=== PATIENT | male | born 1975 | race African-American/Black ===

== ENCOUNTER 2021-06-21 10:58 | Day surgery (SDC) | payer OTHER ==
[2021-06-21] MEDS ORDERED: ONDANSETRON 4 MG/2 ML VIAL ONE ×2 (11:39→13:33)
[2021-06-21] MEDS ORDERED: HYDROMORPHONE HCL 1 MG/ML INJ ONE ×2 (11:39→12:03)
[2021-06-21] MEDS ORDERED: NA CHLORIDE 0.9% 1,000 ML ONE (11:50)
[2021-06-21 11:51] LABS: Urine Blood Negative (Negative); Urine Glucose Negative (Negative); Urine Protein Negative (Negative); Urine pH 5.5 (5.0-7.0)
[2021-06-21 11:54] LABS: Absolute Lymphocytes (CBC) 0.9 K/uL (0.7-4.9); Hematocrit 42.1 % (39.6-49.0); Lymphocytes % 8.1 % (15.3-44.8); MPV 7.5 fL (7.6-11.3); RBC Red Blood Cell Count 4.45 M/uL (4.33-5.43)
[2021-06-21 12:10] LABS: Albumin 3.9 g/dL (3.4-5.0); Bilirubin Total 0.4 mg/dL (0.2-1.0); Potassium 4.2 mmol/L (3.5-5.1); Protein, Total 7.8 g/dL (6.4-8.2)
--- NOTE | 2021-06-21 12:12 | ER ---
Nurse's Notes [facility] Name: Darrion Soliz Age: 46 yrs Sex: Male : 1975 Arrival Date: 06/21/2021 Time: 11:05 Bed 25 Private MD: Diagnosis: Unilateral inguinal hernia, with obstruction, without gangrene, recurrent Presentation: 06/21 11:05 Chief complaint: Patient states: "I have had a hernia for years and normally when it ab2 pops out we can get it back in but this time we cant and it hurts really bad. The doctor at the [facility] said its lacerated." Pt c/o abdominal pain and nausea. Coronavirus screen: Vaccine status: Patient reports receiving the 2nd dose of the covid vaccine. Client denies travel out of the [place] in the last 14 days. At this time, the client does not indicate any symptoms associated with coronavirus-19. Ebola Screen: Patient negative for fever greater than or equal to 101.5 degrees Fahrenheit, and additional compatible Ebola Virus Disease symptoms Patient denies exposure to infectious person. Patient denies travel to an Ebola-affected area in the 21 days before illness onset. No symptoms or risks identified at this time. Initial Sepsis Screen: Does the patient meet any 2 criteria? No. Patient's initial sepsis screen is negative. Does the patient have a suspected source of infection? No. Patient's initial sepsis screen is negative. Risk Assessment: Do you want to hurt yourself or someone else? Patient reports no desire to harm self or others. Onset of symptoms is unknown. 11:05 Method Of Arrival: Other ab2 11:05 Acuity: OSCAR 3 ab2 Historical: - Allergies: 11:07 No Known Allergies; ab2 - PMHx: 11:07 Asthma; Hypercholesterolemia; Hypertensive disorder; ab2 - PSHx: 11:07 None; ab2 - Immunization history:: Adult Immunizations up to date. - Social history:: Smoking status: Patient denies any tobacco usage or history of. - Family history:: not pertinent. Screenin:09 Abuse screen: Denies threats or abuse. Denies injuries from another. Nutritional ab2 screening: No deficits noted. Tuberculosis screening: No symptoms or risk factors identified. Fall Risk None identified. Assessment: 11:07 General: Appears in no apparent distress. uncomfortable, Behavior is cooperative, ab2 appropriate for age, agitated. Pain: Complains of pain in right lower quadrant Pain radiates to pelvis. Neuro: Level of Consciousness is awake, alert, obeys commands, Oriented to person, place, time, situation, Appropriate for age Senior Medical Billing Specialist are equal bilaterally Moves all extremities. Gait is steady, Speech is normal, Facial symmetry appears normal. Cardiovascular: No deficits noted. Denies chest pain, shortness of breath, Heart tones S1 S2 present Patient's skin is warm and dry. Respiratory: No deficits noted. Airway is patent Respiratory effort is even, unlabored, Respiratory pattern is regular, symmetrical, Breath sounds are clear bilaterally. GI: Reports lower abdominal pain, nausea, hernia noted. : No deficits noted. EENT: No deficits noted. No signs and/or symptoms were reported regarding the EENT system. Derm: Skin is intact, is healthy with good turgor. Musculoskeletal: No deficits noted. 12:58 Reassessment: Patient appears in no apparent distress at this time. Pt resting more ab2 comfortably after pain medications. Pt states pain is much better. Awaiting for patient to go to OR. Correctional officers remain at bedside. 13:13 Reassessment: Patient appears in no apparent distress at this time. Bedside report ab2 given to OR nurse. Patient transferred to OR via stretcher with OR nurse and 2 correctional officers. Vital Signs: 11:05 BP 178 / 105; Pulse 73; Resp 17; Temp 98.9; Pulse Ox 99% on R/A; Weight 88.45 kg; ab2 Height 6 ft. 1 in. (185.42 cm); Pain 10/10; 11:48 BP 154 / 111; Pulse 79; Resp 17; Pulse Ox 99% ; ab2 12:51 BP 151 / 95; Pulse 59; Resp 17; Pulse Ox 98% on R/A; ab2 11:05 Body Mass Index 25.73 (88.45 kg, 185.42 cm) ab2 ED Course: 11:05 Patient arrived in ED. ab2 11:05 Clayton Clifford is Primary Nurse. ab2 11:05 Jose Rinaldi MD is Attending Physician. juanito 11:07 Triage completed. ab2 11:09 Arm band placed on right wrist. ab2 11:09 Patient has correct armband on for positive identification. Side rails up X2. Adult w/ ab2 patient. 2 correctional officers at bedside. 11:48 No provider procedures requiring assistance completed. Inserted saline lock: 20 gauge ab2 in left antecubital area, using aseptic technique. Blood collected. 12:11 Garth Rao MD is Hospitalizing Provider. juanito 12:35 CT Abd/Pelvis - IV Contrast Only In Process Unspecified. EDMS 12:49 Chest Single View XRAY In Process Unspecified. EDMS 12:51 COVID-19 SARS RT PCR (Document "Date of Onset" if Symptomatic) Sent. ab2 13:14 Patient admitted, IV remains in place. ab2 Administered Medications: 11:38 Drug: Zofran (Ondansetron) 8 mg Route: IVP; Site: left antecubital; ab2 12:59 Follow up: Response: No adverse reaction ab2 11:38 Drug: Dilaudid (HYDROmorphone) 1 mg Route: IVP; Site: left antecubital; ab2 13:00 Follow up: Response: No adverse reaction ab2 11:39 CANCELLED (Duplicate Order): Zofran (Ondansetron) 8 mg IVP once; over 2 minutes ab2 11:39 CANCELLED (Duplicate Order): Dilaudid (HYDROmorphone) 1 mg IVP once; RASS on ADMIN: ab2 Combtv4, Very Agttd3, Agttd2, Rstlss1, AlertClm0, Drwsy-1, Lt Sdtn-2, Mod Sdtn-3, Dp Sdtn-4, UnArsble-5 11:42 CANCELLED (Duplicate Order): Dilaudid (HYDROmorphone) 1 mg IVP once; RASS on ADMIN: ab2 Combtv4, Very Agttd3, Agttd2, Rstlss1, AlertClm0, Drwsy-1, Lt Sdtn-2, Mod Sdtn-3, Dp Sdtn-4, UnArsble-5 11:47 Drug: NS 0.9% 1000 ml Route: IV; Rate: 1 bolus; Site: left antecubital; ab2 12:59 Follow up: Response: No adverse reaction; IV Status: Completed infusion ab2 12:01 Drug: Dilaudid (HYDROmorphone) 1 mg Route: IVP; Site: left antecubital; ab2 12:59 Follow up: Response: No adverse reaction ab2 12:18 Drug: Zosyn (piperacillin-tazobactam) 3.375 grams Route: IVPB; Infused Over: 60 mins; ab2 Site: left antecubital; 13:00 Follow up: Response: No adverse reaction; IV Status: Completed infusion ab2 Outcome: 12:12 Decision to Hospitalize by Provider. juanito 13:14 Admitted to OR accompanied by nurse, via stretcher, with chart. ab2 13:14 Condition: good 13:14 Patient left the ED. ab2 Signatures: Dispatcher [employer] Jose Tompkins MD MD cha Bleininger, Alexis ab2
--- NOTE | 2021-06-21 12:12 | EDPHYS ---
Physician Documentation [facility] Name: Darrion Soliz Age: 46 yrs Sex: Male : 1975 Arrival Date: 06/21/2021 Time: 11:05 Bed 25 Private MD: ED Physician Jose Rinaldi HPI: 06/21 12:05 This 46 yrs old Black Male presents to ER via Other with complaints of right scrotal juanito pain. 12:05 The patient presents with abdominal pain right lower quadrant. Onset: The juanito symptoms/episode began/occurred 2 hour(s) ago. The patient presents with scrotal pain, of the right side. Onset: The symptoms/episode began/occurred 2 hour(s) ago. Modifying factors: The symptoms are alleviated by nothing, the symptoms are aggravated by movement. Associated signs and symptoms: The patient has no apparent associated signs or symptoms. The symptoms do not radiate. Associated signs and symptoms: none. Severity of pain: At its worst the pain was moderate in the emergency department the pain is unchanged. Historical: - Allergies: 11: No Known Allergies; ab2 - PMHx: 11: Asthma; Hypercholesterolemia; Hypertensive disorder; ab2 - PSHx: : None; ab2 - Immunization history:: Adult Immunizations up to date. - Social history:: Smoking status: Patient denies any tobacco usage or history of. - Family history:: not pertinent. ROS: 12:05 Constitutional: Negative for fever, chills, and weight loss, Eyes: Negative for injury, juanito pain, redness, and discharge, ENT: Negative for injury, pain, and discharge, Neck: Negative for injury, pain, and swelling, Cardiovascular: Negative for chest pain, palpitations, and edema, Respiratory: Negative for shortness of breath, cough, wheezing, and pleuritic chest pain, Back: Negative for injury and pain, : Negative for injury, bleeding, discharge, and swelling, MS/Extremity: Negative for injury and deformity, Skin: Negative for injury, rash, and discoloration, Neuro: Negative for headache, weakness, numbness, tingling, and seizure, Psych: Negative for depression, anxiety, suicide ideation, homicidal ideation, and hallucinations, Allergy/Immunology: Negative for hives, rash, and allergies, Endocrine: Negative for neck swelling, polydipsia, polyuria, polyphagia, and marked weight changes, Hematologic/Lymphatic: Negative for swollen nodes, abnormal bleeding, and unusual bruising. 12:05 Abdomen/GI: Positive for abdominal pain, of the right lower quadrant. 12:05 Abdomen/GI: Positive for nausea, of the . 12:05 : Positive for of the suprapubic area and right lower quadrant. Exam: 12:05 Constitutional: This is a well developed, well nourished patient who is awake, alert, juanito and in no acute distress. Head/Face: Normocephalic, atraumatic. Eyes: Pupils equal round and reactive to light, extra-ocular motions intact. Lids and lashes normal. Conjunctiva and sclera are non-icteric and not injected. Cornea within normal limits. Periorbital areas with no swelling, redness, or edema. ENT: Nares patent. No nasal discharge, no septal abnormalities noted. Tympanic membranes are normal and external auditory canals are clear. Oropharynx with no redness, swelling, or masses, exudates, or evidence of obstruction, uvula midline. Mucous membranes moist. Neck: Trachea midline, no thyromegaly or masses palpated, and no cervical lymphadenopathy. Supple, full range of motion without nuchal rigidity, or vertebral point tenderness. No Meningismus. Chest/axilla: Normal chest wall appearance and motion. Nontender with no deformity. No lesions are appreciated. Cardiovascular: Regular rate and rhythm with a normal S1 and S2. No gallops, murmurs, or rubs. Normal PMI, no JVD. No pulse deficits. Respiratory: Lungs have equal breath sounds bilaterally, clear to auscultation and percussion. No rales, rhonchi or wheezes noted. No increased work of breathing, no retractions or nasal flaring. Back: No spinal tenderness. No costovertebral tenderness. Full range of motion. Male : Normal genitalia with no discharge or lesions. Skin: Warm, dry with normal turgor. Normal color with no rashes, no lesions, and no evidence of cellulitis. MS/ Extremity: Pulses equal, no cyanosis. Neurovascular intact. Full, normal range of motion. Neuro: Awake and alert, GCS 15, oriented to person, place, time, and situation. Cranial nerves II-XII grossly intact. Motor strength 5/5 in all extremities. Sensory grossly intact. Cerebellar exam normal. Normal gait. Psych: Awake, alert, with orientation to person, place and time. Behavior, mood, and affect are within normal limits. 12:05 Abdomen/GI: Inspection: distension, that is mild, Bowel sounds: normal, Palpation: moderate abdominal tenderness, in the suprapubic area, Liver: no appreciated palpable abnormalities, Hernia: not appreciated. 13:09 ECG was reviewed by the Attending Physician. [facility] Vital Signs: 11:05 BP 178 / 105; Pulse 73; Resp 17; Temp 98.9; Pulse Ox 99% on R/A; Weight 88.45 kg; ab2 Height 6 ft. 1 in. (185.42 cm); Pain 10/10; 11:48 BP 154 / 111; Pulse 79; Resp 17; Pulse Ox 99% ; ab2 12:51 BP 151 / 95; Pulse 59; Resp 17; Pulse Ox 98% on R/A; ab2 11:05 Body Mass Index 25.73 (88.45 kg, 185.42 cm) ab2 MDM: 11:05 Patient medically screened. [facility] 12:09 Differential diagnosis: non-specific abd pain, pancreatitis, urinary tract infection. [facility] Data reviewed: vital signs, nurses notes, lab test result(s), radiologic studies, CT scan. Data interpreted: hose builder: rate is 79 beats/min, rhythm is regular, Pulse oximetry: on room air is 99 %. Counseling: I had a detailed discussion with the patient and/or guardian regarding: the historical points, exam findings, and any diagnostic results supporting the discharge/admit diagnosis, lab results, the need for further work-up and treatment in the hospital. 06/21 11:39 Order name: CBC with Diff; Complete Time: 13:09 [facility] 06/21 11:39 Order name: CMP; Complete Time: 13:09 [facility] 06/21 11:39 Order name: Lipase; Complete Time: 13:09 [facility] 06/21 11:51 Order name: Urine Dipstick-Ancillary; Complete Time: 13: [facility] 06/21 12:21 Order name: COVID-19 SARS RT PCR (Document "Date of Onset" if Symptomatic) bd 06/21 12:32 Order name: CBC Smear Scan; Complete Time: 13:09 [facility] 06/21 12:56 Order name: Basic Metabolic Panel [facility] 06/21 12:56 Order name: Basic Metabolic Panel [facility] 06/21 12:56 Order name: CBC with Automated Diff [facility] 06/21 12:56 Order name: CBC with Automated Diff [facility]CT 06/21 12:56 Order name: Lipase EDCT 06/21 12:56 Order name: Lipase EDCT 06/21 12:56 Order name: Liver (Hepatic) Function EDCT 06/21 12:56 Order name: Liver (Hepatic) Function EDCT 06/21 11:39 Order name: CT Abd/Pelvis - IV Contrast Only; Complete Time: 13:09 [facility] 06/21 11:39 Order name: IV Saline Lock; Complete Time: 11:42 [facility] 06/21 11:39 Order name: Labs collected and sent; Complete Time: 11:42 [facility] 06/21 11:39 Order name: Urine Dipstick-Ancillary (obtain specimen); Complete Time: 11:48 [facility] 06/21 12:11 Order name: EKG; Complete Time: 12:11 [facility] 06/21 12:11 Order name: EKG - Nurse/Tech; Complete Time: 12:51 [facility] 06/21 12:11 Order name: Chest Single View XRAY; Complete Time: 13:09 [facility] 06/21 12:56 Order name: NPO; Complete Time: 12:59 EDMS EC:09 Rate is 75 beats/min. Rhythm is regular. QRS [place] is Normal. NM interval is normal. QRS juanito interval is normal. QT interval is normal. No Q waves. T waves are Normal. No ST changes noted. Clinical impression: NSR w/ Non-specific ST/T Changes and No evidence of ischemia. Interpreted by me. Reviewed by me. Administered Medications: 11:38 Drug: Zofran (Ondansetron) 8 mg Route: IVP; Site: left antecubital; ab2 12:59 Follow up: Response: No adverse reaction ab2 11:38 Drug: Dilaudid (HYDROmorphone) 1 mg Route: IVP; Site: left antecubital; ab2 13:00 Follow up: Response: No adverse reaction ab2 11:39 CANCELLED (Duplicate Order): Zofran (Ondansetron) 8 mg IVP once; over 2 minutes ab2 11:39 CANCELLED (Duplicate Order): Dilaudid (HYDROmorphone) 1 mg IVP once; RASS on ADMIN: ab2 Combtv4, Very Agttd3, Agttd2, Rstlss1, AlertClm0, Drwsy-1, Lt Sdtn-2, Mod Sdtn-3, Dp Sdtn-4, UnArsble-5 11:42 CANCELLED (Duplicate Order): Dilaudid (HYDROmorphone) 1 mg IVP once; RASS on ADMIN: ab2 Combtv4, Very Agttd3, Agttd2, Rstlss1, AlertClm0, Drwsy-1, Lt Sdtn-2, Mod Sdtn-3, Dp Sdtn-4, UnArsble-5 11:47 Drug: NS 0.9% 1000 ml Route: IV; Rate: 1 bolus; Site: left antecubital; ab2 12:59 Follow up: Response: No adverse reaction; IV Status: Completed infusion ab2 12:01 Drug: Dilaudid (HYDROmorphone) 1 mg Route: IVP; Site: left antecubital; ab2 12:59 Follow up: Response: No adverse reaction ab2 12:18 Drug: Zosyn (piperacillin-tazobactam) 3.375 grams Route: IVPB; Infused Over: 60 mins; ab2 Site: left antecubital; 13:00 Follow up: Response: No adverse reaction; IV Status: Completed infusion ab2 Disposition Summary: 06/21/21 12:12 Hospitalization Ordered Hospitalization Status: Observation juanito Provider: Garth Rao cha Location: Operating Room juanito Condition: Fair juanito Problem: new juanito Symptoms: have improved jaunito Bed/Room Type: Standard juanito Room Assignment: juanito Diagnosis - Unilateral inguinal hernia, with obstruction, without gangrene, recurrent juanito Forms: - Medication Reconciliation Form juanito - SBAR form juanito Signatures: Dispatcher [employer] Jose Tompkins MD MD cha Bleininger, Alexis ab2 Corrections: (The following items were deleted from the chart) 11:39 11:39 Zofran (Ondansetron) 8 mg IVP once; over 2 minutes ordered. juanito ab2 11:39 11:39 Dilaudid (HYDROmorphone) 1 mg IVP once; RASS on ADMIN: Combtv4, Very Agttd3, ab2 Agttd2, Rstlss1, AlertClm0, Drwsy-1, Lt Sdtn-2, Mod Sdtn-3, Dp Sdtn-4, UnArsble-5 ordered. [facility] 11:42 11:41 Dilaudid (HYDROmorphone) 1 mg IVP once; RASS on ADMIN: Combtv4, Very Agttd3, ab2 Agttd2, Rstlss1, AlertClm0, Drwsy-1, Lt Sdtn-2, Mod Sdtn-3, Dp Sdtn-4, UnArsble-5 ordered. [facility]
[2021-06-21] MEDS ORDERED: PIPERACIL/TAZO 3.375 GM VIAL IV ONE (12:18)
[2021-06-21] MEDS ORDERED: NA CHLORIDE 0.9% 100 ML IV ONE (12:18)
[2021-06-21 12:31] LABS: White Blood Cell Scan OK (OK)
[2021-06-21 12:32] LABS: Blood Morphology Comment NOT SEEN (NOT SEEN); Platelet Estimate ADEQ
[2021-06-21] MEDS ORDERED: BUPIVACAINE 0.5% PF 10 ML VIAL ONE (12:32)
--- NOTE | 2021-06-21 12:52 | RAD REPORT ---
EXAM DESCRIPTION: CTAbdomen Pelvis W Contrast - 06/21/2021 12:34 pm CLINICAL HISTORY: Hernia, complicated COMPARISON: No comparisons TECHNIQUE: CT of the abdomen and pelvis was performed. All CT scans are performed using dose optimization technique as appropriate and may include automated exposure control or mA/KV adjustment according to patient size. FINDINGS: Lower chest: No acute abnormality. Liver: No acute abnormality or suspicious lesions. Biliary: No biliary ductal dilatation. Stomach: No significant focal abnormality. Duodenum: No significant focal abnormality. Pancreas: No significant abnormality. Spleen: No significant abnormality. Adrenal: No suspicious lesions. Kidney/ureter: No hydronephrosis. No renal calculi. Too small to characterize and/or benign appearing renal lesions are noted. Retroperitoneum: No retroperitoneal adenopathy. Vascular: No aneurysm. Bowel: Bowel containing right inguinal hernia with fluid.. This has a narrow neck. Cannot exclude inc arceration or strangulation. The wall of the colon within the sac is not well delineated and could be necrotic. Peritoneum: Right inguinal hernia as noted above. Small volume of pleural free fluid. Bladder: Grossly unremarkable. Reproductive: No adnexal masses. Bones: No acute fracture. Other: n/a IMPRESSION: Colon containing right inguinal hernia with possible strangulation. Urgent surgical cons ultation recommended. Finding relayed to Dr. Rinaldi by Dr. Blackwell at 1245 on 06/21/21.
[2021-06-21] MEDS ORDERED: ACETAMINOPHEN 500 MG TAB PO PRN (12:53)
[2021-06-21] MEDS ORDERED: ONDANSETRON 4 MG/2 ML VIAL IV PRN (12:53)
[2021-06-21] MEDS ORDERED: HYDROMORPHONE HCL 1 MG/ML INJ IV PRN (12:53)
--- NOTE | 2021-06-21 12:53 | RAD REPORT ---
EXAM DESCRIPTION: RAD - Chest Single View - 06/21/2021 12:47 pm CLINICAL HISTORY: COUGH COMPARISON: No comparisons FINDINGS: Lines: None. Lungs: No evidence of edema or pneumonia. Pleural: No significant pleural effusions or pneumothorax. Cardiac: The heart size is within normal limits. Bones: No acute fractures. Other: IMPRESSION: No acute cardiopulmonary disease.
[2021-06-21] MEDS ORDERED: D5 0.45 NS 1,000 ML IV SCH (13:00)
[2021-06-21] MEDS ORDERED: Ringers Lactate 1,000 ML IV ONE (13:30)
[2021-06-21] MEDS ORDERED: propofoL 200 MG/20 ML VIAL IV ONE (13:32)
[2021-06-21] MEDS ORDERED: LIDOCAINE 2% MPF 5 ML VIAL ONE (13:32)
[2021-06-21] MEDS ORDERED: MIDAZOLAM HCL 2 MG/2 ML INJ ONE (13:32)
[2021-06-21] MEDS ORDERED: FENTANYL CITR 100 MCG/2 ML ONE (13:32)
[2021-06-21] MEDS ORDERED: ROCURONIUM 50 MG/5 ML VIAL IV ONE ×2 (13:33→14:29)
--- NOTE | 2021-06-21 14:13 | P.HP ---
Date of Service: 06/21/21 Chief complaint: Right groin and abdominal pain History of present Illness: Patient is a 46-year-old gentleman who presents from the [facility] with 1 day history of right groin pain as well as right lower quadrant abdominal pain. Patient's had nausea and vomiting x3. Patient's last bowel movement was 2 to 3 days ago. Patient is passing gas. Patient denies any dysuria or hematuria. Patient has no sore throat, no runny nose, headaches, dizziness, chest pain or fever or chills. Patient has a tender mass in his right scrotum that is not reducible. Review of systems: Otherwise unremarkable Past medical history: Hypertension, high cholesterol, asthmapatient currently on no medications Past surgical history: Negative Allergies: None Social history: Patient denies current use of alcohol or drugs or cigarettes Family history: Noncontributory Vital signs: Stable, afebrile Physical exam: Awake alert oriented x3 Head and neck: Cranial nerves II through XII grossly within normal limits, throat clear, neck supple, no JVD, no sore throat Chest: Clear Heart: S1-S2 Abdomen: Soft, nondistended, positive bowel sounds, positive tenderness right lower quadrant with no rebound, rigidity or guarding : A nonreducible right inguinal hernia is present, very tender with normal penis and testicles Extremity: Neurovascularly intact, full range of motion and nontender Neuro: Nonfocal Diagnostic data: CT of the abdomen shows a incarcerated right inguinal hernia concerning for strangulation with colon Present inside. Laboratory data reviewed essentially within normal limits. Assessment: Incarcerated, possible strangulated right inguinal hernia with colon Plan/recommendation: Repair of incarcerated right inguinal hernia, possible exploratory laparotomy, possible bowel resection, possible ostomy. Patient understands risk benefits alternatives and agrees to procedure. IV antibiotics and IV fluids have been administered as well. CC:
[2021-06-21] MEDS ORDERED: dexAMETHasone 10 MG/ML VIAL ONE (14:50)
[2021-06-21] MEDS ORDERED: Mastisol Adhesive Liq ONE (15:07)
[2021-06-21] MEDS ORDERED: SUGAMMADEX SODIUM 200 MG/2 ML VIAL IV ONE (15:12)
[2021-06-21] MEDS ORDERED: HYDROCODONE/APAP 10/325 TAB PO PRN (15:34)
--- NOTE | 2021-06-21 15:44 | P.OP ---
Date of Service: 06/21/21 Preop diagnosis: Incarcerated, possible strangulated right inguinal hernia Postop diagnosis: Incarcerated right inguinal hernia Procedure performed: Repair of incarcerated right inguinal hernia Surgeon: Garth Rao MD Radio Equipment Repairer: Jayashree DE LA TORRE Estimated blood loss: Minimal Specimen: Hernia sac Findings: As above Anesthesia: General Complications: None Drains: None Fluids and blood products: Not applicable Disposition: Recovery room Operative note: Patient brought to the OR and placed in the supine position. General anesthesia begun. Patient prepped and draped in the usual sterile fashion. Marcaine 0.5% infiltrated in a field block fashion in the right groin. 5 cm incision was made utilizing a 15 blade. Subcutaneous tissue divided. Daquan's fascia identified and divided. Aponeurosis identified and mobilized inferiorly to expose the shelving edge. Aponeurosis opened through the external ring. Ilioinguinal nerve and cord structures identified and mobilized. Ilioinguinal nerve retracted out of the field of dissection. Cord structures skeletonized and a large indirect hernia sac identified in the anteromedial aspect of the cord. Sac opened. Bowel present and reduced back into the peritoneal cavity. Bowel was healthy. Hernia sac freed from the cord structures with sharp and blunt dissection. Bleeding controlled with cautery and 3-0 silk utilized as needed. High ligation of the sac performed with #1 Prolene suture ligature and freehand tie. Hernia sac excised sent to pathology. Marlex mesh plug placed in the internal ring and secured with VersaTack stapler. Onlay mesh placed in the inguinal floor and secured medially to the pubic tubercle, superiorly to the conjoined tendon, inferiorly to the shelving edge and laterally to each other. Cord structures and ilioinguinal nerve placed back in anatomic location. 2-0 Prolene used to close the aponeurosis. 3-0 chromic used to close Daquan's fascia. Subcutaneous wounds irrigated bleeding controlled cautery and then 3-0 chromic used to close skin. Sterile dressing applied and patient awakened taken to recovery in good general condition. CC:
[2021-06-21] MEDS ORDERED: HYDROCODONE/APAP 10/325 TAB ONE (16:22)
[2021-06-21 16:30] VITALS: BP 150/97; TEMP 97.1; O2SAT 100
--- NOTE | 2021-06-22 14:35 | EKG ---
Test Date: 2021-06-21 Test Time: 12:43:16 Animal Assisted Therapist: MEASUREMENT RESULTS: Intervals: Rate: 55 [place]: 166 QRSD: 122 QT: 452 QTc: 432 [place]: P: 44 [place]: 166 QRS: 112 T: 77 INTERPRETIVE STATEMENTS: Sinus bradycardia Right axis deviation Possible Right ventricular hypertrophy Abnormal ECG No previous ECG available for comparison Electronically Signed On 06-22-21 14:32:26 CDT by Sav Boone
== END 2021-06-21 17:34 | disposition home or self-care (01) ==
LOC: ER 10:58 → DS 12:13
PROVIDERS: ATTEND Surgery
PROC: 0YU50JZ Supplement Right Inguinal Region with Synthetic Substitute, Open Approach (ICD-10-PCS; principal; 2021-06-21 13:30)
DX: K40.30 Unilateral inguinal hernia, with obstruction, without gangrene, not specified as recurrent (principal); I10 Essential (primary) hypertension; E78.00 Pure hypercholesterolemia, unspecified; J45.909 Unspecified asthma, uncomplicated; Z20.822 Contact with and (suspected) exposure to COVID-19
CPT/HCPCS: 96365; 96361; 93005; 85025; 36415; 88302; 81003; 83690; 80053; 74177; 71045; 96375; 99285; 49507; U0003; Q9967; J2250; J2405 ×2; J1100; J1170; J2543; J2704; J3010; J7030; J7120

== ENCOUNTER 2021-09-08 13:53 | Emergency (ER) | payer OTHER ==
[2021-09-08] MEDS ORDERED: FENTANYL CITR 100 MCG/2 ML ONE (14:42)
[2021-09-08 15:04] LABS: Absolute Lymphocytes (CBC) 1.2 K/uL (0.7-4.9)
[2021-09-08 15:10] LABS: Hematocrit 40.7 % (39.6-49.0); Lymphocytes % 15.6 % (15.3-44.8); MPV 7.2 fL (7.6-11.3); RBC Red Blood Cell Count 4.42 M/uL (4.33-5.43)
[2021-09-08 15:18] LABS: Potassium 4.1 mmol/L (3.5-5.1)
--- NOTE | 2021-09-08 15:33 | RAD REPORT ---
EXAM DESCRIPTION: CT - Head C Spine Cap Jonh Marie - 09/08/2021 3:20 pm CLINICAL HISTORY: Trauma, head and neck injury. Chest, abdomen and pelvis pain. fall, traumatic injuries COMPARISON: <Comparisons> TECHNIQUE: CT head without contrast. CT cervical spine without contrast with coronal and sagittal reformatted images. CT chest, abdomen and pelvis with coronal and sagittal reformatted images of the spine. All CT scans are performed using dose optimization technique as appropriate and may include automated exposure control or mA/KV adjustment according to patient size. FINDINGS: CT HEAD WITHOUT CONTRAST: No intracranial hemorrhage, hydrocephalus or extra-axial fluid collection. No acute large vascular te rritory infarct. The paranasal sinuses and mastoids are clear. The calvarium is intact. CT CERVICAL SPINE WITHOUT CONTRAST: No fracture or subluxation. The prevertebral soft tissues are normal in thickness. CT CHEST, ABDOMEN, PELVIS: Thorax: Chest Wall: No abnormal mass Lungs: No acute abnormality. Pleura: No effusions or pneumothorax. Jessica/Mediastinum: No lymphadenopathy. Aorta/Pulmonary Arteries: Unremarkable Heart: Normal size. Abdomen/Pelvis: Liver: No acute abnormality or suspicious lesions. Biliary: No biliary ductal dilatation. Stomach: No significant focal abnormality. Duodenum: No significant focal abnormality. Pancreas: No significant abnormality. Spleen: No significant abnormality. Adrenal: No suspicious lesions. Kidney/ureter: No hydronephrosis. No renal calculi. Too small to characterize and/or benign appearing renal lesions are noted. Retroperitoneum: No retroperitoneal adenopathy. Vascular: No aneurysm. Bowel: No significant focal abnormality. Peritoneum: No ascites or free air. Bladder: Grossly unremarkable. Reproductive: No adnexal masses. Bones: No acute fracture. Other: n/a IMPRESSION: 1. No acute intracranial abnormality. 2. No acute fracture or traumatic malalignment of the cervical spine. 3. No acute findings within the chest, abdomen, or pelvis.
[2021-09-08 15:43] LABS: Blood Morphology Comment NOT SEEN (NOT SEEN); Platelet Estimate ADEQ; White Blood Cell Scan OK (OK)
--- NOTE | 2021-09-08 16:30 | RAD REPORT ---
EXAM DESCRIPTION: RAD - Chest Single View - 09/08/2021 4:21 pm CLINICAL HISTORY: BLUNT CHEST TRAUMA COMPARISON: Chest Single View dated 06/21/2021 FINDINGS: Lines: None. Lungs: No evidence of edema or pneumonia. Pleural: No significant pleural effusions or pneumothorax. Cardiac: The heart size is within normal limits. Bones: No acute fractures. Other: IMPRESSION: No acute cardiopulmonary disease.
--- NOTE | 2021-09-08 16:30 | RAD REPORT ---
EXAM DESCRIPTION: RAD - Humerus Right - 09/08/2021 4:21 pm CLINICAL HISTORY: PAIN COMPARISON: No comparisons FINDINGS/IMPRESSION: No acute fracture. No malalignment. No significant focal degenerative changes.
--- NOTE | 2021-09-08 16:30 | RAD REPORT ---
EXAM DESCRIPTION: RAD - Shoulder Right 2 View - 09/08/2021 4:21 pm CLINICAL HISTORY: PAIN COMPARISON: No comparisons FINDINGS/IMPRESSION: No acute fracture. No malalignment. No significant focal degenerative changes.
--- NOTE | 2021-09-08 16:30 | RAD REPORT ---
EXAM DESCRIPTION: RAD - Forearm Right - 09/08/2021 4:21 pm CLINICAL HISTORY: PAIN COMPARISON: No comparisons FINDINGS: No acute fracture. No malalignment. No significant focal degenerative changes. IMPRESSION: No acute osseous abnormality involving the .
--- NOTE | 2021-09-08 16:31 | RAD REPORT ---
EXAM DESCRIPTION: RAD - Foot Left 3 View - 09/08/2021 4:21 pm CLINICAL HISTORY: DEFORMITY COMPARISON: No comparisons FINDINGS/IMPRESSION: No acute fracture. No malalignment. Talar beaking.
--- NOTE | 2021-09-08 16:31 | RAD REPORT ---
EXAM DESCRIPTION: RAD - Pelvis - 09/08/2021 4:21 pm CLINICAL HISTORY: TRAUMA COMPARISON: No comparisons FINDINGS/IMPRESSION: No acute fracture. No malalignment. No significant focal degenerative changes. Degenerative changes are present at the pubic symphysis.
[2021-09-08] MEDS ORDERED: TETANUS & DIPHTHERIA TOX,ADULT 0.5 ML VIAL ONE (17:02)
[2021-09-08] MEDS ORDERED: LIDOCAINE 1% W/EPI 1:100,000 MDV 50 ML VIAL ONE (17:11)
--- NOTE | 2021-09-08 17:54 | EDPHYS ---
Physician Documentation [facility] Name: Darrion Soliz Age: 46 yrs Sex: Male : 1975 Arrival Date: 09/08/2021 Time: 13:57 Bed 2 Private MD: ED Physician Lynsey Dominique HPI: 09/08 14:05 This 46 yrs old Black Male presents to ER via Unassigned with complaints of fall. sd2 14:05 46 yo M presents via EMS with CC from senior care of fall in his cell. Per report, patient was sd2 doing a backflip in his cell and landed on his head. He complains of head, neck, back and bilateral arm pain as well as L great toe pain. Positive LOC. Not taking blood thinners. Pt awake, alert and oriented en route. Pt denies any other acute complaints at this time. Aggravating factors: movement, palpation. Alleviating factors: none. Historical: - Allergies: 14:35 No Known Allergies; em6 - PMHx: 14:35 Asthma; Hypertensive disorder; Hypercholesterolemia; em6 - Immunization history:: Adult Immunizations up to date. - Social history:: Smoking status: Patient denies any tobacco usage or history of. - Immunization history: Last tetanus immunization: unknown. ROS: 14:05 Constitutional: Negative for fever, chills, and weight loss, Eyes: Negative for injury, sd2 pain, redness, and discharge, Neck: Negative for injury and swelling. Positive for pain. Cardiovascular: Negative for chest pain, palpitations, and edema, Respiratory: Negative for shortness of breath, cough, wheezing. Abdomen/GI: Negative for abdominal pain, nausea, vomiting, diarrhea. Back: Positive for injury and pain. Skin: Negative for injury, rash, and discoloration. Positive for laceration. Neuro: Positive for headache. Negative for numbness and tingling. Hematologic/Lymphatic: Negative for swollen nodes, abnormal bleeding, and unusual bruising. Exam: 14:05 Constitutional: This is a well developed, well nourished patient who is awake, alert, sd2 and in no acute distress. Head/Face: Normocephalic. Approximately 8 cm laceration noted to midline frontal scalp to forehead. Eyes: EOMI, normal conjunctiva bilaterally, PERRL Neck: C-collar in place. Midline cervical spinal tenderness present. Chest/axilla: Normal chest wall appearance and motion. Nontender with no deformity. Cardiovascular: Regular rate and rhythm with a normal S1 and S2. No gallops, murmurs, or rubs. 2+ distal pulses. Respiratory: Lungs have equal breath sounds bilaterally, clear to auscultation and percussion. No rales, rhonchi or wheezes noted. No increased work of breathing, no retractions or nasal flaring. Abdomen/GI: Soft, non-tender, with normal bowel sounds. No guarding or rebound. No evidence of tenderness throughout. Back: TTP of midline cervical, thoracic and lumbar spine. No stepoffs or deformities. Skin: Warm, dry with normal turgor. Normal color with no rashes, no lesions, and no evidence of cellulitis. See note regarding laceration. MS/ Extremity: Pulses equal, no cyanosis. Neurovascular intact. Full, normal range of motion. Ambulatory without difficulty. Psych: Awake, alert, with orientation to person, place and time. Behavior, mood, and affect are within normal limits. Vital Signs: 14:35 BP 159 / 104; Pulse 71; Resp 19; Temp 97.8(TE); Pulse Ox 100% on R/A; Weight 90.72 kg em6 (R); Height 6 ft. 2 in. (187.96 cm) (R); Pain 10/10; 15:22 BP 150 / 92; Pulse 67; Resp 19; Pulse Ox 98% on R/A; jd3 16:00 BP 151 / 98; Pulse 76; Resp 19; Pulse Ox 98% on R/A; jd3 16:51 Pulse 75; Resp 18; Pulse Ox 98% on R/A; jd3 14:35 Body Mass Index 25.68 (90.72 kg, 187.96 cm) em6 [facility] Coma Score: 15:03 Eye Response: spontaneous(4). Verbal Response: oriented(5). Motor Response: obeys jd3 commands(6). Total: 15. 16:00 Eye Response: spontaneous(4). Verbal Response: oriented(5). Motor Response: obeys jd3 commands(6). Total: 15. 16:51 Eye Response: spontaneous(4). Verbal Response: oriented(5). Motor Response: obeys jd3 commands(6). Total: 15. Trauma Score (Adult): 15:03 Eye Response: spontaneous(1); Verbal Response: oriented(1); Motor Response: obeys jd3 commands(2); Systolic BP: > 89 mm Hg(4); Respiratory Rate: 10 to 29 per min(4); [facility] Score: 15; Trauma Score: 12 16:00 Eye Response: spontaneous(1); Verbal Response: oriented(1); Motor Response: obeys jd3 commands(2); Systolic BP: > 89 mm Hg(4); Respiratory Rate: 10 to 29 per min(4); [facility] Score: 15; Trauma Score: 12 16:51 Eye Response: spontaneous(1); Verbal Response: oriented(1); Motor Response: obeys jd3 commands(2); Systolic BP: > 89 mm Hg(4); Respiratory Rate: 10 to 29 per min(4); R[facility] Score: 15; Trauma Score: 12 Laceration: 14:05 Wound Repair of subcutaneous laceration to face. Distal neuro/vascular/tendon intact. sd2 17:48 Wound Repair of 8cm ( 3.1in ) subcutaneous laceration to mid line forehead. Linear cp shaped.. Distal neuro/vascular/tendon intact. Anesthesia: Local anesthetic administered with 12 mls of Lido/Marcaine. Wound prep: Moderate cleansing by nurse, Wound irrigation by nurse. Skin closed with 1 5-0 Prolene using running sutures. Dressed with Bacitracin, 4x4's, Kerlix. Patient tolerated well. MDM: 14:05 Differential diagnosis: abrasion, closed head injury, contusion, fracture, laceration, sd2 multiple trauma, sprain, strain, among others. Data reviewed: vital signs, nurses notes. 14:12 Patient medically screened. sd2 17:51 Data reviewed: lab test result(s), radiologic studies. Counseling: I had a detailed sd2 discussion with the patient and/or guardian regarding: the historical points, exam findings, and any diagnostic results supporting the discharge/admit diagnosis, lab results, radiology results, the need for outpatient follow up, to return to the emergency department if symptoms worsen or persist or if there are any questions or concerns that arise at home. Medical screen evaluation completed. EMTALA emergency medical condition absent. ED course: Pt advised of all results. Labs grossly WNCL. Imaging with no acute traumatic findings. Laceration repaired without complication. Tetanus updated. Pt advised of continued supportive care for symptoms. Will discharge back to senior care with plan for follow up of injuries. Pt verbalizes understanding of discharge plan and strict return precautions.. 09/08 14:04 Order name: Basic Metabolic Panel; Complete Time: 16:00 sd2 09/08 14:04 Order name: CBC with Diff; Complete Time: 16:00 sd09/08 14:04 Order name: CT Traumagram (Head C Spine CAP W Con); Complete Time: 16:00 sd09/08 15:13 Order name: CBC Smear Scan; Complete Time: 16:00 EDMS 09/08 14:04 Order name: XRAY Chest (1 view); Complete Time: 16:34 09/08 14:04 Order name: XRAY Pelvis; Complete Time: 16:34 sd09/08 14:04 Order name: XRAY Foot LEFT 3 View; Complete Time: 16:34 09/08 14:04 Order name: XRAY Forearm LEFT; Complete Time: 16:34 09/08 14:04 Order name: XRAY Forearm RIGHT; Complete Time: 16:34 09/08 14:04 Order name: XRAY Humerus LEFT; Complete Time: 16:34 sd09/08 14:04 Order name: XRAY Humerus RIGHT; Complete Time: 16:34 sd09/08 14:04 Order name: XRAY Shoulder LEFT 2 view; Complete Time: 16:34 09/08 14:04 Order name: Labs collected and sent; Complete Time: 14:57 09/08 14:04 Order name: XRAY Shoulder RIGHT 2 view; Complete Time: 16:34 sd09/08 14:20 Order name: Misc. Order: REMOVE TDC RESTRAINTS FOR CAT SCAN, MEDICALLY NECESSARY; bp Complete Time: 14:20 Administered Medications: 14:53 Drug: fentaNYL (PF) 50 mcg Route: IVP; Site: left antecubital; bp 15:50 Follow up: Response: No adverse reaction; RASS: Alert and Calm (0) jd3 17:01 Drug: Tetanus-Diphtheria Toxoid Adult 0.5 ml {Electromechanical Assembly Technician: Growish. Exp: em6 05/12/2023. Lot #: [id number]. } Route: IM; Site: right deltoid; 18:46 Follow up: Response: (VIS) Vaccine information sheet provided today. Questions and/or jl7 concerns addressed. VIS edition date: Sep 22, 2020.; No adverse reaction Disposition: 17:55 Co-signature as Attending Physician, Lynsey Dominique I agree with the assessment and sd2 plan of care. Disposition Summary: 09/08/21 17:54 Discharge Ordered Location: Home sd2 Problem: new sd2 Symptoms: have improved sd2 Condition: Stable sd2 Diagnosis - Fall on same level, unspecified sd2 - Unspecified injury of head, initial encounter sd2 - Forehead laceration sd2 Followup: sd2 - With: Private Physician - When: 2 - 3 days - Reason: Recheck today's complaints, Continuance of care, Re-evaluation by your physician Followup: sd2 - With: Emergency Department - When: As needed - Reason: Discharge Instructions: - Discharge Summary Sheet sd2 - Head Injury, Adult sd2 - Laceration Care, Adult sd2 Forms: - Medication Reconciliation Form sd2 - Thank You Letter sd2 - Antibiotic Education sd2 - Prescription Opioid Use sd2 Signatures: Dispatcher [employer] EDMS Jose Riddle PA PA cp Davies, Jonathon RN RN jJose Enrique Rodriguez, RN RN Lynsey Taveras2 Cora Rod, RN RN em6 Chilango Edward RN [id number] Corrections: (The following items were deleted from the chart) 14:12 14:05 Head C Spine MPR Wo Con+CT.RAD.BRZ ordered. EDMS EDMS
--- NOTE | 2021-09-08 17:54 | ER ---
Nurse's Notes [facility] Name: Darrion Soliz Age: 46 yrs Sex: Male : 1975 Arrival Date: 09/08/2021 Time: 13:57 Bed 2 Private MD: Diagnosis: Fall on same level, unspecified;Unspecified injury of head, initial encounter;Forehead laceration Presentation: 09/08 14:05 Chief complaint: EMS states: "pt was doing a back flip in his cell and landed on the jd3 concrete landing on his head. he has about an 8 cm laceration from the forehead to about the top of his nose. pt reporting brief period where he lost consciousness. pt reporting pain in his shoulders, head, and left foot.". Coronavirus screen: At this time, the client does not indicate any symptoms associated with coronavirus-19. Ebola Screen: No symptoms or risks identified at this time. Initial Sepsis Screen: Does the patient meet any 2 criteria? No. Patient's initial sepsis screen is negative. Does the patient have a suspected source of infection? No. Patient's initial sepsis screen is negative. Risk Assessment: Do you want to hurt yourself or someone else? Patient reports no desire to harm self or others. Onset of symptoms was September 08, 2021. 14:05 Method Of Arrival: EMS: [facility] 14:05 Acuity: OSCAR 2 jd3 14:57 Care prior to arrival: Cervical collar in place. Placed on backboard. Mechanism of jd3 Injury: Fall from standing position. Trauma event details: Injury occurred in the [facility], Injury occurred: in an institution. Injury occurred: September 08, 2021 Injury occurred at: 13:00. Trauma Activation: Not Applicable Physician: ED Physician; Name: ; Notified At: ; Arrived At: Physician: General Surgeon; Name: ; Notified At: ; Arrived At: Physician: Radiology; Name: ; Notified At: ; Arrived At: Physician: Respiratory; Name: ; Notified At: ; Arrived At: Physician: Lab; Name: ; Notified At: ; Arrived At: 14:57 no trauma alert called at this time jd3 Historical: - Allergies: 14:35 No Known Allergies; em6 - PMHx: 14:35 Asthma; Hypertensive disorder; Hypercholesterolemia; em6 - Immunization history:: Adult Immunizations up to date. - Social history:: Smoking status: Patient denies any tobacco usage or history of. - Immunization history: Last tetanus immunization: unknown. Screenin:03 Abuse screen: Denies threats or abuse. Nutritional screening: No deficits noted. jd3 Tuberculosis screening: No symptoms or risk factors identified. 15:06 Fall Risk Fall in past 12 months (25 points). IV access (20 points). Total Watson Fall jd3 Scale indicates High Risk Score (45 or more points). Fall prevention measures have been instituted. Side Rails Up X 2 Placed Close to Nursing Station Frequent Obs/Assessments Occuring As available patient and family educated on Fall Prevention Program and Strategies. Primary Survey: 15:02 NO uncontrolled hemorrhage observed. A: The client is awake and alert. The airway is jd3 patent. Breathing/Chest: Spontaneous respiratory effort, equal unlabored respirations, breath sounds clear bilaterally, regular pattern, symmetrical chest rise and fall. Circulation: No external hemorrhage present. Regular and strong central pulse, skin warm/dry/normal color. Disability Pupils are equal, round, reactive to light and accommodation. Client is alert. Exposure/Environment: All clothing and personal items were removed. Forensic evidence collection is not deemed to be indicated at this time. Items placed in patient belonging bag. There is no evidence of uncontrolled external bleeding. Obvious injury(ies) are noted at this time: laceration noted to forehead A warming method has been applied: A warm blanket has been provided to the patient. 16:00 Reassessment Alertness and Airway: Awake and alert. The airway is patent. Breathing: jd3 Spontaneous respiratory effort, equal unlabored respirations, breath sounds clear bilaterally, regular pattern with symmetrical chest rise and fall. Circulation: No external hemorrhage noted. Regular and strong central pulse, skin warm/dry/normal color. Disability: Pupils Pupils are equal, round, reactive to light and accomodation. Alert. Secondary Survey: 15:03 HEENT: No deficits noted. Gastrointestinal: Bowel sounds present in all quadrants. jd3 Palpation No deficit noted Patient reports Nausea. : No signs and/or symptoms were reported regarding the genitourinary system. Musculoskeletal: Circulation, motion, and sensation intact. Range of motion: limited in left shoulder and right shoulder. Assessment: 14:59 General: Appears in no apparent distress. uncomfortable, Behavior is cooperative, jd3 appropriate for age, restless. Pain: Complains of pain in head, right arm, left arm and left foot Quality of pain is described as sharp, tender. Neuro: [place] Agitation-Sedation Scale (RASS): +1 Restless Level of Consciousness is awake, alert, obeys commands, Oriented to person, place, time, situation, Moves all extremities. Full function Speech is normal, Pupils are PERRLA, Denies weakness blurred vision. EENT: No signs and/or symptoms were reported regarding the EENT system. Cardiovascular: Heart tones present Capillary refill < 3 seconds Patient's skin is warm and dry. Respiratory: Airway is patent Respiratory effort is even, unlabored, Respiratory pattern is regular, symmetrical, Breath sounds are clear bilaterally. Denies cough, shortness of breath. GI: Reports nausea, Patient currently denies abdominal pain. : No signs and/or symptoms were reported regarding the genitourinary system. Derm: Skin is intact, Skin is dry, Skin is normal, Skin temperature is warm Wound noted scalp Wound is about 10 cm laceration. no bleeding noted at this time. Musculoskeletal: Circulation, motion, and sensation intact. Range of motion: limited in left shoulder and right shoulder. 15:22 Reassessment: Patient appears in no apparent distress at this time. No changes from jd3 previously documented assessment. Patient and/or family updated on plan of care and expected duration. Pain level reassessed. Patient is alert, oriented x 3, equal unlabored respirations, skin warm/dry/pink. 16:26 Reassessment: Patient appears in no apparent distress at this time. No changes from jd3 previously documented assessment. Patient and/or family updated on plan of care and expected duration. Pain level reassessed. Patient is alert, oriented x 3, equal unlabored respirations, skin warm/dry/pink. 17:10 Reassessment: Patient and/or family updated on plan of care and expected duration. Pain jd3 level reassessed. Patient is alert, oriented x 3, equal unlabored respirations, skin warm/dry/pink. laceration cleaned with surgical scrub preparing for laceration repair. Vital Signs: 14:35 BP 159 / 104; Pulse 71; Resp 19; Temp 97.8(TE); Pulse Ox 100% on R/A; Weight 90.72 kg em6 (R); Height 6 ft. 2 in. (187.96 cm) (R); Pain 10/10; 15:22 BP 150 / 92; Pulse 67; Resp 19; Pulse Ox 98% on R/A; jd3 16:00 BP 151 / 98; Pulse 76; Resp 19; Pulse Ox 98% on R/A; jd3 16:51 Pulse 75; Resp 18; Pulse Ox 98% on R/A; jd3 14:35 Body Mass Index 25.68 (90.72 kg, 187.96 cm) em6 Bay Coma Score: 15:03 Eye Response: spontaneous(4). Verbal Response: oriented(5). Motor Response: obeys jd3 commands(6). Total: 15. 16:00 Eye Response: spontaneous(4). Verbal Response: oriented(5). Motor Response: obeys jd3 commands(6). Total: 15. 16:51 Eye Response: spontaneous(4). Verbal Response: oriented(5). Motor Response: obeys jd3 commands(6). Total: 15. Trauma Score (Adult): 15:03 Eye Response: spontaneous(1); Verbal Response: oriented(1); Motor Response: obeys jd3 commands(2); Systolic BP: > 89 mm Hg(4); Respiratory Rate: 10 to 29 per min(4); Rolf Score: 15; Trauma Score: 12 16:00 Eye Response: spontaneous(1); Verbal Response: oriented(1); Motor Response: obeys jd3 commands(2); Systolic BP: > 89 mm Hg(4); Respiratory Rate: 10 to 29 per min(4); Rolf Score: 15; Trauma Score: 12 16:51 Eye Response: spontaneous(1); Verbal Response: oriented(1); Motor Response: obeys jd3 commands(2); Systolic BP: > 89 mm Hg(4); Respiratory Rate: 10 to 29 per min(4); Bay Score: 15; Trauma Score: 12 ED Course: 13:57 Patient arrived in ED. eb 14:00 Lynsey Dominique is Attending Physician. sd2 14:05 Ady Carroll, RN is Primary Nurse. jd3 14:10 Triage completed. jd3 14:30 Missed attempt(s): 18 gauge in left antecubital area. Bleeding controlled, band aid jd3 applied, catheter tip intact. 14:35 Missed attempt(s): 20 gauge in left antecubital area. Bleeding controlled, band aid jd3 applied, catheter tip intact. 14:36 Arm band placed on. em6 14:50 Missed attempt(s): 20 gauge in left forearm. Bleeding controlled, band aid applied, jl7 catheter tip intact. 14:54 Inserted saline lock: 22 gauge in left antecubital area, using aseptic technique. Blood bp collected. 15:05 Patient maintains SpO2 saturation greater than 95% on room air. Thermoregulation: warm jd3 blanket given to patient. 15:06 Patient has correct armband on for positive identification. Placed in gown. Bed in low jd3 position. Call light in reach. Side rails up X2. Adult w/ patient. senior living guards at bedside. pt remains in handcuffs from senior living guards. Client placed on continuous cardiac and pulse oximetry monitoring. NIBP monitoring applied. security monitor on. Pulse ox on. NIBP on. 15:21 CT Traumagram (Head C Spine CAP W Con) In Process Unspecified. EDMS 16:22 XRAY Chest (1 view) In Process Unspecified. EDMS 16:22 XRAY Pelvis In Process Unspecified. EDMS 16:22 XRAY Foot LEFT 3 View In Process Unspecified. EDMS 16:22 XRAY Forearm LEFT In Process Unspecified. EDMS 16:22 XRAY Forearm RIGHT In Process Unspecified. EDMS 16:22 XRAY Humerus LEFT In Process Unspecified. EDMS 16:22 XRAY Humerus RIGHT In Process Unspecified. EDMS 16:22 XRAY Shoulder LEFT 2 view In Process Unspecified. EDMS 16:22 XRAY Shoulder RIGHT 2 view In Process Unspecified. EDMS 17:33 Assist provider with laceration repair on scalp and forehead that was between 7.6 to jd3 12.5 cm using sutures. Set up tray. Performed by Jose SCHAFFER Dressed with 4X4s, Patient tolerated well. 18:47 IV discontinued, intact, bleeding controlled, No redness/swelling at site. Pressure jl7 dressing applied. 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 Exp: em6 05/12/2023. Lot #: [id number]. } Route: IM; Site: right deltoid; 18:46 Follow up: Response: (VIS) Vaccine information sheet provided today. Questions and/or jl7 concerns addressed. VIS edition date: Sep 22, 2020.; No adverse reaction Medication: 15:07 VIS not applicable for this client. jd3 Intake: 16:51 PO: 0ml; Total: 0ml. jd3 Output: 16:51 Urine: 500ml (Voided); Total: 500ml. jd3 Outcome: 17:54 Discharge ordered by . [email or web address] 18:47 Discharged to Law Enforcement jl7 18:47 Condition: stable 18:47 Discharge instructions given to patient, police, Instructed on discharge instructions, follow up and referral plans. Demonstrated understanding of instructions, follow-up care. 18:47 Patient's length of stay was not longer than 2 hours. jl7 18:48 Patient left the ED. jl7 Signatures: Dispatcher [employer] EDMS Chilango Edward RN RN jl7 Ady Carroll RN RN jd3 Jose Enrique Reyes RN RN Samina Robbins Stephanie sd2 Cora Rod, RN RN em6 Corrections: (The following items were deleted from the chart) 17:12 14:59 Derm: Skin is intact, Skin is dry, Skin is normal, Skin temperature is warm Wound jd3 noted forehead Wound is about 8 cm laceration. no bleeding noted at this time jd3
[2021-09-08 18:55] VITALS: TEMP 97.8
[2021-09-08 18:56] VITALS: O2SAT 98
[2021-09-08 18:58] VITALS: BP 151/98
== END 2021-09-08 18:48 | disposition home or self-care (01) ==
LOC: ER 13:53
PROC: 0JQ10ZZ Repair Face Subcutaneous Tissue and Fascia, Open Approach (ICD-10-PCS; principal; 2021-09-08)
DX: S01.81XA Laceration without foreign body of other part of head, initial encounter (principal); S09.90XA Unspecified injury of head, initial encounter; W18.30XA Fall on same level, unspecified, initial encounter; Z23 Encounter for immunization; I10 Essential (primary) hypertension
CPT/HCPCS: 85025; 80048; 36415; 70450; 72125; 71260; 74177; 71045; 72170; 73630; 73090 ×2; 73060 ×2; 73030 ×2; 90471; 90714; 96374; 99285; 12015; Q9967; J3010